=== PATIENT | female | born 1960 | race Hispanic/Latino ===

== ENCOUNTER → 2023-12-27 | Outpatient (CLI) | payer OTHER | END | disposition home or self-care (01) | LOC: OIH 13:15 | PROVIDERS: ATTEND Internal Medicine Cardiovascular Disease | DX: Z13.6 Encounter for screening for cardiovascular disorders (principal) | CPT/HCPCS: 75571 ==

== ENCOUNTER → 2024-11-03 | Outpatient (CLI) | payer MEDICARE, MEDICAID ==
--- NOTE | 2024-11-06 13:13 | HMCSR ---
APPROVED REPORT EXAM: Two-dimensional and M-mode echocardiogram with Doppler and color Doppler. INDICATION ICD: I50.810 Right heart failure, unspecified 2D Dimensions RVDd3.0 cmLVEF(%)56.3 (>50%)LVED Vol(simp.)84.0 mL IVSd0.9 (0.7-1.1cm)FS(%)29 %LVES Vol(simp.)36.0 mL LVDd4.1 (3.8-5.6cm)Ao Root(2D)3.0 (2.0-3.7cm)LVEF(%, simp.)57 % PWd0.8 (0.7-1.1cm)LVOT diam2.0 (1.8-2.4cm)LA ESV INDEX (BP)18.65 mL/m2 LVDs2.9 (2.5-4.0cm) Aortic Valve AoV Vmax1.5 m/[place] GR8.5 mmHgLVOT Vmax1.1 m/s AoV VTI0.4 mAo Mean GR4.9 mmHgLVOT VTI0.25 m GIANNI (VMAX)2.2 cm2AVA (VTI) 2.2 cm2 Mitral Valve MV E Vmax89.3 cm/sDECEL Ugra830 ms MV A Vmax98.3 cm/sP 1/2 T73 ms E/A ratio0.9MVA (PHT)3.0 cm2 TDI E/E' Otvyqx31.9E/E' Kvblexb39.1 Pulmonary Valve PV Vmax1.0 m/sPV VTI0.25 mPV Mean GR2 mmHg PV Peak GR3.8 mmHg Tricuspid Valve TR Vmax1.9 m/sRAP (EST) 8 [id number] mmHg TR Peak GR15.1 mmHg Left Ventricle Left ventricular cavity size is normal. There is normal LV segmental wall motion. There is normal lef t ventricular wall thickness. LVEF is 55-60%. Indeterminate diastolic dysfunction. Right Ventricle The right ventricle is normal size. The right ventricular systolic function is normal. Atria The left atrium size is normal. The right atrium size is normal. Aortic Valve Aortic valve is trileaflet. Aortic valve leaflets are sclerotic but open well. No aortic regurgitatio n is present. There is no aortic valvular stenosis. Mitral Valve Mitral valve leaflets are mildly sclerotic but open well. Mitral regurgitation is trace. There is no mitral valve stenosis. Tricuspid Valve The tricuspid valve leaflets appear normal. There is trace tricuspid regurgitation. Pulmonic Valve The pulmonic valve leaflets are thin and pliable; valve motion is normal. There is trace pulmonic yudi vular regurgitation. Great Vessels The aortic root is normal in size. IVC is not well visualized. Pericardium No pericardial effusion. Conclusion LVEF is 55-60%.
== END | disposition home or self-care (01) ==
LOC: SHCH 08:17
PROVIDERS: ATTEND Internal Medicine Cardiovascular Disease
DX: I08.0 Rheumatic disorders of both mitral and aortic valves (principal); I50.810 Right heart failure, unspecified
CPT/HCPCS: 93306

== ENCOUNTER → 2025-03-19 | Outpatient (CLI) | payer MEDICARE, MEDICAID ==
[~2025-03-19] MED LIST: APIX5TAB PO; ERGO500093 PO; EZET10TA48 PO; FURO40TA5 PO; GABA-529 PO; HYDR-3422 PO; LACT10SO75 PO; LEVO-70 PO; OXYB10TA30 PO; PIOG15TA66 PO; SENN-180 PO; VITAD50000 PO
--- NOTE | 2025-03-19 15:56 | HMCIMG ---
US VENOUS DOPPLER UNILATERAL REASON: RT LEG PAIN, SOFT TISSUE DISORDERS COMPARISON: None TECHNIQUE: Color-flow Doppler with venous compression studies performed of the right lower extremity. FINDINGS: Greater saphenous, common femoral vein, deep femoral vein, popliteal vein, posterior tibial veins were evaluated. Thrombus formation is present within the left common femoral vein with noncompressibility. The remainder the venous structures are patent and demonstrate spontaneous flow, normal compressibility. IMPRESSION: Deep venous thrombosis within the right common femoral vein. Preliminary report submitted to emergency department nurse use any at by geodetic surveyor technologist.
== END | disposition home or self-care (01) ==
LOC: RAH 14:24
PROVIDERS: ATTEND Family Medicine
DX: I82.411 Acute embolism and thrombosis of right femoral vein (principal); M79.89 Other specified soft tissue disorders; M79.604 Pain in right leg
CPT/HCPCS: 93971

== ENCOUNTER → 2025-06-13 | Outpatient (CLI) | payer MEDICARE, MEDICAID ==
--- NOTE | 2025-06-14 08:06 | HMCIMG ---
EXAMINATION: SPECTRAL DOPPLER ULTRASOUND EXAMINATION OF THE RIGHT LOWER EXTREMITY VEINS. CLINICAL HISTORY: Pain. COMPARISON: Bilateral lower extremity venous doppler dated 03/19/2025. TECHNIQUE: Real-time ultrasound scan of the veins of the right lower extremity with color Doppler flow, spectral waveform analysis and compression. FINDINGS: DEEP VEINS: The superficial femoral and popliteal veins are echolucent and compressible. There is normal color Doppler flow throughout. The visualized calf veins appear patent. The external iliac and common femoral veins are partially compressible with partial flow. SUPERFICIAL VEINS: The greater saphenous veins is patent and compressible. SOFT TISSUES: No popliteal fossa cyst or other abnormalities. IMPRESSION: Partial deep vein thrombosis in the right external iliac and common femoral veins. No deep venous thrombosis evident in the remainder of the right lower extremity. No superficial thrombophlebitis in the right lower extremity. /[place]
== END | disposition home or self-care (01) ==
LOC: RAH 10:59
PROVIDERS: ATTEND Family Medicine
DX: I82.421 Acute embolism and thrombosis of right iliac vein (principal); I82.411 Acute embolism and thrombosis of right femoral vein; M79.604 Pain in right leg
CPT/HCPCS: 93971